=== PATIENT | female | born 1975 | race Caucasian/White ===

== ENCOUNTER 2019-06-12 00:02 | Emergency (ER) | payer SELFPAY ==
[~2019-06-12] VITALS: Ht 160 cm; Wt 62.4 kg
[~2019-06-12 00:02] MED LIST: METH4TAB PO; PENI500T PO
[2019-06-12] MEDS ORDERED: L.E.T. SYRINGE 5 ML TOP ONE (00:30)
[2019-06-12] MEDS ORDERED: LIDOCAINE/EPI 2% 1:100,00 (XYLOCAINE) 20 ML VIAL INJ ONE (00:30)
[2019-06-12] MEDS ORDERED: SODIUM BICARB 8.4% 50 MEQ/50 ML VIAL IV ONE (00:30)
[2019-06-12] MEDS ORDERED: SULF1TAB35 PO (01:09)
--- NOTE | 2019-06-12 01:09 | ED General ---
General Chief Complaint: Skin/Wound Problems Stated Complaint: LUMP UNDER RT ARM Nursing Triage Note: Patient states that she has had a bump in her armpit for approximately 2 weeks. Patient states that she took some antibiotics she had left over from a previous infection. There is a spot about the size of a golf ball. It is draining pus. Nursing Sepsis Screen: No Definite Risk Source of Information: Patient Exam Limitations: No Limitations History of Present Illness Date Seen by Provider: Jun 11, 2019 Time Seen by Provider: 00:09 Initial Comments This 43-year-old woman presents to the emergency room with complaints of an abscess in her right axilla for the past 2 weeks. She was suppressing it with Bactrim she had at home until she ran out 2 days ago. The abscess then worsened. She thinks she may have had some subjective fevers, but she is not febrile at present. She was recently admitted to the hospital in April with significant schaefer. She is still healing from those. The abscess broke open and started to drain on her way to the emergency room. Allergies and Home Medications Allergies Coded Allergies: Ibuprofen (Unverified Allergy, Mild, 07/04/09) Tramadol (Unverified Allergy, Mild, 07/04/09) Home Medications Sulfamethoxazole/Trimethoprim 1 Each Tablet, 1 EACH PO BID Prescribed by: NITZA NASH on 06/12/19 0109 Patient Home Medication List Home Medication List Reviewed: Yes Review of Systems Review of Systems Constitutional: see HPI EENTM: no symptoms reported Respiratory: no symptoms reported Cardiovascular: no symptoms reported Gastrointestinal: no symptoms reported Genitourinary: no symptoms reported : No Musculoskeletal: no symptoms reported Skin: see HPI Psychiatric/Neurological: No Symptoms Reported Hematologic/Lymphatic: No Symptoms Reported Immunological/Allergic: no symptoms reported Past Wllofmo-Ixyekv-Gggrsi Hx Past Med/Social Hx: Reviewed Nursing Past Med/Soc Hx Patient Social History Alcohol Use: Denies Use Recreational Drug Use: No Smoking Status: Never a Smoker Recent Foreign Travel: No Contact w/Someone Who Travel: No Recent Infectious Disease Expo: No Physical Abuse: No Sexual Abuse: No Mistreated: No Fear: No Seasonal Allergies Seasonal Allergies: No Past Medical History Surgeries: Yes Tubal Ligation Respiratory: No Cardiac: No Neurological: No : No Genitourinary: No Gastrointestinal: No Musculoskeletal: No Endocrine: No HEENT: No Cancer: No Psychosocial: No Integumentary: Yes (3rd degree schaefer to back) Physical Exam Vital Signs Vital Signs - First Documented 06/12/19 00:08 Temp 37.2 Pulse 50 Resp 18 B/P (MAP) 138/93 (108) Pulse Ox 96 O2 Delivery Room Air Capillary Refill : Less Than 3 Seconds Height, Weight, BMI Height: '" Weight: lbs. oz. kg; 24.00 BMI Method: General Appearance: WD/WN, Mild Distress HEENT: PERRL/EOMI, Normal ENT Inspection Neck: Normal Inspection Respiratory: Lungs Clear, Normal Breath Sounds, No Accessory Muscle Use Cardiovascular: Regular Rate, Rhythm, No Edema, No Murmur Extremity: Normal Inspection, No Pedal Edema Neurologic/Psychiatric: Alert, Oriented x3, No Motor/Sensory Deficits, Normal Mood/Affect, janitor helper II-XII Norm as Tested Skin: Warm/Dry, Other (abscess measuring 2-3 cm in diameter in the right axilla. There is a central opening with purulent and bloody drainage. There is localized induration extending to about 4 cm in diameter. There is erythema spreading to the distal upper arm.) Procedures/Interventions I&D : Blade Size: 10 Progress Skin was anesthetized with LET. It was then cleaned with chlorhexidine wipes. Approximately 8 mL of lidocaine with epinephrine was then injected around the abscess. The abscess was then opened with a 1 cm incision. Loculations were broken up with hemostats. The remaining purulent material was expressed. Wound was then dressed. Progress/Results/Core Measures Suspected Sepsis Recent Fever Within 48 Hours: No Infection Criteria Present: None New/Unexplained Altered Menta: No Sepsis Screen: No Definite Risk SIRS Temperature: Pulse: 50 Respiratory Rate: 18 Blood Pressure 138 /93 Mean: 108 Results/Orders My Orders Orders - NITZA ALMANZA MD Wound Culture (06/12/19 00:12) Let Solution (Let Solution) (06/12/19 00:30) Lidocaine/Epi 2% 1:100,000 (Xylocaine/Ep (06/12/19 00:30) Sodium Bicarbonate 8.4% Vial (Sodium Bic (06/12/19 00:30) Sulfamethoxazole/Trimet Ds Tab (Bactrim (06/12/19 01:15) Hydrocodone/Apap 5/325 Tablet (Lortab 5 (06/12/19 01:15) Medications Given in ED Current Medications Medications Dose Ordered Sig/Maia Route Start Time Stop Time Status Last Admin Dose Admin Acetaminophen/ Hydrocodone Bitart 1 tab ONCE ONCE PO 06/12/19 01:15 06/12/19 01:13 DC 06/12/19 01:12 1 TAB Lidocaine/ Epinephrine 20 ml ONCE ONCE INJ 06/12/19 00:30 06/12/19 00:31 DC 06/12/19 01:00 20 ML Tetracaine/ Epinephrine/ Lidocaine 1 ea ONCE ONCE TOP 06/12/19 00:30 06/12/19 00:31 DC 06/12/19 00:25 1 EA Trimethoprim/ Sulfamethoxazole 1 ea ONCE ONCE PO 06/12/19 01:15 06/12/19 01:12 DC 06/12/19 01:12 1 EA Vital Signs/I&O 06/12/19 06/12/19 00:08 01:12 Temp 37.2 37.2 Pulse 50 50 Resp 18 18 B/P (MAP) 138/93 (108) 138/93 (108) Pulse Ox 96 96 O2 Delivery Room Air Capillary Refill : Less Than 3 Seconds Blood Pressure Mean: 108 Progress Note : Progress Note Incision and drainage was performed. Patient was treated with Bactrim DS and hydrocodone. Departure Impression Primary Impression: Abscess of right axilla Additional Impression: Encounter for incision and drainage procedure Disposition: 01 HOME, SELF-CARE Condition: Improved Departure-Patient Inst. Decision time for Depature: 01:07 Referrals: NO,LOCAL PHYSICIAN (PCP/Family) Primary Care Physician Patient Instructions: Abscess Incision and Drainage (DC) Add. Discharge Instructions: Complete the antibiotics as prescribed. Keep wound covered until it quits draining. You may use ibuprofen up to 600 mg every 6 hours and Tylenol (acetaminophen) up to 1000 mg every 6 hours as needed. Return to care if you have worsening symptoms. All discharge instructions reviewed with patient and/or family. Voiced understanding. Scripts Sulfamethoxazole/Trimethoprim (Bactrim Ds Tablet) 1 Each Tablet 1 EACH PO BID, #20 TAB Prov: NITZA ALMANZA MD 06/12/19 NITZA ALMANZA MD Jun 12, 2019 01:09
[2019-06-12 01:12] VITALS: BP 138/93
[2019-06-12] MEDS ORDERED: TRIM/SULFAMETH 160/800 (SEPTRA DS) TAB PO ONE (01:15)
[2019-06-12] MEDS ORDERED: HYDROcodone/APAP 5 MG/325 MG (LORTAB) TAB PO ONE (01:15)
== END 2019-06-12 01:12 | disposition home or self-care (01) ==
LOC: EDUNIT# 00:02 → ER FS 00:05
DX: L02.411 Cutaneous abscess of right axilla (principal); Z88.6 Allergy status to analgesic agent; Z88.5 Allergy status to narcotic agent
CPT/HCPCS: 10060; 87070; 87077; 87186; 87205